=== PATIENT | male | born 1970 | race Caucasian/White ===

== ENCOUNTER 2018-08-12 08:12 | Emergency (ER) | payer SELFPAY ==
--- NOTE | 2018-08-12 08:39 | ED.PDOC ---
History of Present Illness - General Chief Complaint: Respiratory Problem Stated Complaint: lower rib cage pain Time Seen by Provider: 08/12/18 08:39 Source: patient Exam Limitations: no limitations - History of Present Illness Comments: Kevin Byrd 48 y/o male stated that he sneezed 3days ago and afterwards had dull ache on his left lower rib cage since it started;no fever,no chills no longer sneezing /coughing,no N/V. Timing/Duration: constant, other - 3 days ago Cough Quality/Degree: no cough, moderate, other - see hpi Possible Cause: no prior episodes Improving Factors: nothing Worsening Factors: nothing Associated Symptoms: denies symptoms Allergies/Adverse Reactions: Allergies NO KNOWN ALLERGY Allergy (Verified 08/12/18 08:28) Home Medications: Ambulatory Orders Acetamin W/Cod #3 Tab [Tylenol w/CODEINE #3] 1 ea PO TID PRN #10 tab 08/12/18 Azithromycin [Zithromax Z-Wu] 500 mg PO DAILY 3 Days #10 tab 08/12/18 Cefuroxime Axetil [Ceftin] 500 mg PO Q12H 7 Days #14 tablet 08/12/18 Review of Systems - Review of Systems Constitutional: States: no symptoms reported EENTM: States: no symptoms reported Respiratory: States: see HPI Cardiology: States: no symptoms reported Gastrointestinal/Abdominal: States: no symptoms reported Genitourinary: States: no symptoms reported Musculoskeletal: States: no symptoms reported Skin: States: no symptoms reported Neurological: States: no symptoms reported Past Medical History (General) - Patient Medical History Hx Other PMH: Yes - hep c Surgical History: tonsillectomy - Vaccination History Hx Tetanus, Diphtheria Vaccination: No Hx Influenza Vaccination: No Hx Pneumococcal Vaccination: No Immunizations Up to Date: No - Social History Hx Tobacco Use: Yes Hx Substance Use: Yes - remote history Hx Physical Abuse: No Hx Emotional Abuse: No - Activities of Daily Living Grooming Ability: Independent Eating (Feeding) Ability: Independent Toileting Ability: Independent Family Medical History - Family History Father Hx Family Asthma: Yes Hx Family;Other: COPD-dad;mom-liver cirrhosis Physical Exam - Physical Exam General Appearance: Alert, Comfortable, No apparent distress Eye Exam: bilateral normal ENT Exam: normal ENT inspection, hearing grossly normal, pharynx normal Neck: non-tender, full range of motion, supple, normal inspection Respiratory: lungs clear, normal breath sounds, no respiratory distress, other - tenderness left lower rib cage on palpation no rashes noted Cardiovascular/Chest: normal peripheral pulses, regular rate, rhythm, no gallop , no murmur Gastrointestinal/Abdominal: normal bowel sounds, non tender, soft, no organomegaly Extremity: non-tender, normal inspection, no pedal edema, no calf tenderness Neurologic: alert, oriented x 3 Skin Exam: normal color, warm/dry Progress - Progress Progress: 08/12/18 12:14 Vital Signs - 8 hr 08/12/18 08/12/18 08/12/18 08:28 08:51 09:26 Temperature 96.7 F L Pulse Rate [ 68 68 50 L Brachial] Respiratory 18 18 16 Rate Blood Pressure 124/75 116/76 [Left Arm] O2 Sat by Pulse 96 98 Oximetry 08/12/18 10:52 Temperature Pulse Rate [ 52 L Brachial] Respiratory 16 Rate Blood Pressure 139/75 [Left Arm] O2 Sat by Pulse 98 Oximetry - Results/Orders Results/Orders: Laboratory Results - last 24 hr 08/12/18 09:35 WBC 7.4 RBC 5.88 Hgb 17.2 Hct 51.4 MCV 87.6 MCH 29.2 MCHC 33.4 RDW 13.7 Plt Count 270 MPV 9.5 Absolute Neuts (auto) 4.40 Absolute Lymphs (auto) 2.00 Absolute Monos (auto) 0.70 Absolute Eos (auto) 0.30 Absolute Basos (auto) 0.10 Neutrophils % 58.8 Lymphocytes % 26.6 Monocytes % 9.4 H Eosinophils % 4.3 Basophils % 0.9 PT 10.2 INR 1.02 PTT (SP) 25.2 Sodium 137 Potassium 4.4 Chloride 106 Carbon Dioxide 25 Anion Gap 10.4 L BUN 16 Creatinine 0.78 BUN/Creatinine Ratio 20.5 H Random Glucose 71 Serum Osmolality 273.5 L Calcium 10.0 Magnesium 2.3 Total Bilirubin 1.2 H Direct Bilirubin 0.2 Indirect Bilirubin 1.0 H AST 43 H ALT 58 Alkaline Phosphatase 55 Creatine Kinase 104 CK-MB (CK-2) 1.8 CK-MB (CK-2) % Not Reportable Troponin I 0.02 Serum Total Protein 8.1 Albumin 4.1 All test D/W patient chest ct showing atypical PNA but cbc,cardiac enzymes normal - EKG/XRAY/CT XRAY: chest - bilateral atelectasis no rib fractures CT Ordered: Yes - chest bilateral lower lobe consolidation left >right Departure - Departure Clinical Impression: Pleuritic chest pain, History of hepatitis C Pneumonia Qualifiers: Pneumonia type: due to unspecified organism Laterality: bilateral Lung location : lower lobe of lung Qualified Code(s): J18.1 - Lobar pneumonia, unspecified organism Time of Disposition: 12:20 Disposition: Discharge to Home or Self Care Condition: Fair Departure Forms: ED Discharge - Pt. Copy, Patient Portal Self Enrollment Instructions: Pneumonia, Adult (DC), Hepatitis C (DC), Hepatitis C Prescriptions: Acetamin W/Cod #3 Tab [Tylenol w/CODEINE #3] 1 ea PO TID PRN #10 tab PRN Reason: Pain Azithromycin [Zithromax Z-Wu] 500 mg PO DAILY 3 Days #10 tab Cefuroxime Axetil [Ceftin] 500 mg PO Q12H 7 Days #14 tablet Home Medications: Ambulatory Orders Acetamin W/Cod #3 Tab [Tylenol w/CODEINE #3] 1 ea PO TID PRN #10 tab 08/12/18 Azithromycin [Zithromax Z-Wu] 500 mg PO DAILY 3 Days #10 tab 08/12/18 Cefuroxime Axetil [Ceftin] 500 mg PO Q12H 7 Days #14 tablet 08/12/18 Additional Instructions: NEED TO SIGN UP WITH PRIMARY -SEGUNDO [phone];Return to ER if symptoms worsens
[2018-08-12 08:47] VITALS: TEMP 96.7
--- NOTE | 2018-08-12 09:29 | RAD ---
EXAM DESCRIPTION: Chest,1 View (accession [id number]), Ribs,Left 3 Views (accession [id number]) CLINICAL HISTORY: pain COMPARISON: None FINDINGS: Frontal view the thorax with left-sided rib series. Lateral costophrenic sulcus blunting bilaterally suggesting small effusions and/or pleural thickening. Bilateral apical pleural scarring is present. Atelectasis in the lung bases. Heart size is within normal limits. No displaced rib fracture or rib lesion is demonstrated. IMPRESSION: No displaced rib fracture or rib lesion. Small bilateral pleural effusions versus pleural scarring. Bibasilar atelectasis. Electronically signed by: Felice Rivera MD 08/12/2018 9:28 AM CDT
--- NOTE | 2018-08-12 09:29 | RAD ---
EXAM DESCRIPTION: Chest,1 View (accession [id number]), Ribs,Left 3 Views (accession [id number]) CLINICAL HISTORY: pain COMPARISON: None FINDINGS: Frontal view the thorax with left-sided rib series. Lateral costophrenic sulcus blunting bilaterally suggesting small effusions and/or pleural thickening. Bilateral apical pleural scarring is present. Atelectasis in the lung bases. Heart size is within normal limits. No displaced rib fracture or rib lesion is demonstrated. IMPRESSION: No displaced rib fracture or rib lesion. Small bilateral pleural effusions versus pleural scarring. Bibasilar atelectasis. Electronically signed by: Felice Rivera MD 08/12/2018 9:28 AM CDT
--- NOTE | 2018-08-12 12:01 | CT ---
EXAM DESCRIPTION: Chest w/o Contrast : Computed Tomography. CLINICAL HISTORY: pleuritic chest pains COMPARISON: None. TECHNIQUE: Spiral-axial scans at 5 x 5 mm intervals through the lungs and thorax without IV contrast. 2.5 x 5 mm lung algorithm axial reconstructions. 2.0 Mm reconstructions. Total Exam DLP: 322.58 mGy-cm. This exam was performed according to our departmental dose-optimization program which includes automated exposure control, adjustment of the mA and/or kV according to patient size and/or use of iterative reconstruction technique; to reduce radiation dose to as low as reasonably achievable (ALARA). FINDINGS: Bilateral basilar consolidations in the lower lobes larger on the left than right with air bronchograms. Similar appearing infiltrates in the base of the lateral right middle lobe and in the inferior lingula. Minimal posterior pleural thickening bilaterally abutting the lower lobes and small left pleural effusion. Bilateral apical thickening of the pleura with multiple bulla and some blebs more on the right than left. No suspicious nodules. No right pleural effusion. No pneumothorax bilaterally. Evaluation of the mediastinum and hilum limited due to lack of IV contrast. No large soft tissue masses or adenopathy. Base of the neck, chest wall and axilla showing no enlarged lymph nodes or soft tissue masses. Heterogeneous density in the thyroid gland. Included peritoneal cavity in the upper abdomen with no fluid or free air. Included spleen and adrenal glands are unremarkable. Early spondylosis in the upper thoracic disc spaces. No blastic or lytic lesions in the bony thorax. Significant left neural foraminal narrowing C6-7. Early arthrosis left glenohumeral joint. IMPRESSION: 1. Bibasilar infiltrates worse on the left than the right and also small infiltrates in the base of the right middle lobe and inferior lingula. Left pleural effusion. Bilateral pleural thickening worse on the left. This could represent an atypical bacterial process, or fungal or viral pneumonia. Consider correlation with sputum cultures and clinical findings. Electronically signed by: Michel Mckeon MD 08/12/2018 11:59 AM CDT
[2018-08-12] MEDS ORDERED: LIDOCAINE 1% 10 ML VIAL INJ ONE (12:22)
[2018-08-12] MEDS: cefTRIAXone SODIUM 1 GM VIAL IM ONE (12:35)
[2018-08-12] MEDS: AZITHROMYCIN 250 MG TAB PO ONE (12:35)
[2018-08-12 13:02] VITALS: BP 114/72; O2SAT 95
== END 2018-08-12 13:02 | disposition home or self-care (01) ==
LOC: ER 08:12
DX: J18.9 Pneumonia, unspecified organism (principal); R07.1 Chest pain on breathing; Z87.891 Personal history of nicotine dependence; Z86.19 Personal history of other infectious and parasitic diseases
CPT/HCPCS: 36415; 71045; 71101; 71250; 80048; 80076; 82550; 82553; 84484; 85025; 85610; 85730; J0696; Q0144

== ENCOUNTER 2019-06-19 05:41 | Day surgery (SDC) | payer OTHER ==
[2019-06-19] MEDS ORDERED: PROPOFOL 200 MG/20 ML VIAL IV ONE (07:00)
[2019-06-19] MEDS ORDERED: DEXAMETHASONE INJ 10 MG/ML VIAL ONE (07:00)
[2019-06-19] MEDS ORDERED: METOCLOPRAMIDE HCL INJ 10 MG/2 ML VIAL ONE (07:00)
[2019-06-19] MEDS ORDERED: SODIUM CHLORIDE 0.9% 50 ML VIAL ONE (07:00)
[2019-06-19] MEDS ORDERED: LIDOCAINE 1% 10 ML VIAL INJ ONE (07:00)
[2019-06-19] MEDS ORDERED: raNITIdine HCL INJ 25 MG/ML VIAL ONE (07:00)
[2019-06-19] MEDS ORDERED: LACTATED RINGERS 1,000 ML ONE (07:14)
[2019-06-19] MEDS ORDERED: SODIUM CHL 0.9% 100ML MINI-BAG 100 ML IVPB ONE (07:14)
[2019-06-19] MEDS ORDERED: ceFAZolin SODIUM 1 GM VIAL ONE (07:15)
[2019-06-19] MEDS ORDERED: MIDAZOLAM INJ 5 MG/5 ML VIAL ONE (07:51)
[2019-06-19] MEDS ORDERED: BUPIVACAINE 0.25% W/EPI 50 ML VIAL INJ ONE (08:08)
[2019-06-19] MEDS ORDERED: KETAMINE HCL 50 MG/ML SYG IV ONE (08:08)
[2019-06-19] MEDS ORDERED: HYDROmorphone HCL INJ 2 MG/ML VIAL ONE (08:29)
[2019-06-19] MEDS ORDERED: MEPERIDINE HCL 50 MG/ML VIAL ONE (10:37)
[2019-06-19] MEDS ORDERED: HYDROcodone 10MG/APAP 325MG 1 EA TAB ONE (11:17)
--- NOTE | 2019-06-19 11:17 | OP ---
DATE OF PROCEDURE: 06/19/19 PREOPERATIVE DIAGNOSIS: 1. Reducible right inguinal hernia. POSTOPERATIVE DIAGNOSIS: 1. Reducible right inguinal hernia. PROCEDURE: 1. Repair of right inguinal hernia. SURGEON: Buck Ying MD. VARNISH BLENDER: None. ANESTHESIA: General anesthesia, but using laryngeal mask and local infiltration of anesthesia. INDICATION: The patient is a 48-year-old male with a large right inguinal hernia that is reducible. It has been present for some time. He was brought to the Surgical Suite today for herniorrhaphy after the risks, benefits and alternatives to the procedure were discussed and accepted. The patient does have a small, asymptomatic left inguinal hernia. FINDINGS: The patient had a large indirect inguinal hernia that was quite adhesed to the cord. There was a small amount of weakness of the floor the canal with no herniation. PROCEDURE: After adequate general anesthesia was obtained, the patient was prepped and draped in the usual sterile manner. A surgical time-out was taken. An oblique incision was fashioned in the right lower quadrant, first with local infiltration of anesthesia, then with a sharp knife. Dissection was carried down through the skin and subcutaneous tissue to the external oblique fascia using electrocautery and blunt dissection. The self-retaining retractor was placed at this level. The external oblique fascia was then opened through the external inguinal ring in the direction of the fibers. The external oblique fascia was dissected free from the floor of the canal and the self-retaining retractor was placed at this level. The cord was then dissected free from the from the floor of the canal and a half inch [place] drain was placed around it for traction. At this point, the fibers of the cord were divided and the cord was explored with the indirect hernia sac identified and dissected free down to the level of the internal inguinal ring. It was then reduced below the floor of the canal. The floor of the canal was imbricated with 3 [id number] sutures of 2-0 Vicryl. At this point, a Surgimesh patch was introduced under the floor of the internal ring and sutured in place circumferentially with interrupted 2-0 Vicryl sutures. A Surgimesh patch was then sutured around the cord in the usual manner with interrupted 2-0 Vicryl sutures. The wound was irrigated with saline. The cord was placed back in the canal. The wound was irrigated with saline. Hemostasis was noted to be adequate. The external oblique fascia was then closed with running 3-0 Vicryl suture in the usual manner. The cord and subcutaneous tissue above, below and lateral to the incision were infiltrated with local anesthesia. The Abel's fascia was approximated with interrupted 3- 0 Chromic suture. Skin edges were approximated with skin stapler. Sterile pressure dressing was applied. The testicle was checked for position in the scrotum. The patient was awakened and taken to the Recovery Room in stable condition. Estimated blood loss was less than 50 mL. All sponge, needle and instrument counts were correct. #[id number] [facility]
[2019-06-19 11:30] VITALS: TEMP 98.3
[2019-06-19 13:02] VITALS: O2SAT 98
[2019-06-19 13:03] VITALS: BP 136/78
== END 2019-06-19 12:45 | disposition home or self-care (01) ==
LOC: AMB 05:41
PROVIDERS: ATTEND Surgery
DX: K40.90 Unilateral inguinal hernia, without obstruction or gangrene, not specified as recurrent (principal); K66.0 Peritoneal adhesions (postprocedural) (postinfection); K59.00 Constipation, unspecified; F17.290 Nicotine dependence, other tobacco product, uncomplicated
CPT/HCPCS: 00830; 49505; 80048; 81001; 85025; A4216; C1781; J0690; J1100; J1170; J2175; J2250; J2765; J2780; J3490; J7050; J7120